=== PATIENT | male | born 1930 | race Caucasian/White ===

== ENCOUNTER → 2018-10-23 | Outpatient (CLI) | payer MEDICARE ==
[~2018-10-23] MED LIST: ASPIRIN81 M1 PO; BISOPROLOL-HCT1 EAC1; LEVOTHYROXINE50 MCG PO; LOSARTAN POTAS100 MG PO; PLAVIX75 MG PO; PRAVASTATIN SOD20 MG PO; RANITIDINE HCL150 M1 PO; SINGULAIR10 MG PO; ZETIA10 MG PO
--- NOTE | 2018-10-23 15:57 | Diagnostic Imaging Report ---
EXAMINATION: CT of the abdomen and pelvis without contrast. TECHNIQUE: Spiral CT images of the abdomen and pelvis were performed from the lung bases to the lesser trochanters. No intravenous contrast was given per renal stone protocol. Coronal and sagittal reformatted images were obtained. COMPARISON: None. CLINICAL HISTORY:Gross hematuria DISCUSSION: ABSENCE OF INTRAVENOUS CONTRAST DECREASES SENSITIVITY FOR DETECTION OF FOCAL LESIONS AND VASCULAR PATHOLOGY. ABDOMEN/PELVIS: LOWER THORAX: Calcified pleural plaques bilaterally. Calcified granuloma left lower lobe. Scattered groundglass opacities in the bilateral lower lobes HEPATOBILIARY:Nodular hepatic contour compatible with cirrhosis. No focal lesion or intrahepatic biliary ductal dilatation. The gallbladder has been removed. SPLEEN: Multiple calcified splenic granulomata. Spleen is at the upper limits of normal in size, measuring 12.5 cm craniocaudal. PANCREAS: No focal masses or ductal dilatation. ADRENALS: No adrenal nodules. KIDNEYS/URETERS: No hydronephrosis, stones, or solid mass lesions. PELVIC ORGANS/BLADDER: Within the dependent urinary bladder there is an ovoid-lentiform focus of increased attenuation measuring 5.2 cm transverse x 2.5 cm AP as seen on series 3 image 150. Coarse prostatic calcifications with otherwise normal prosthetic size. PERITONEUM/RETROPERITONEUM: No ascites. No pneumoperitoneum. LYMPH NODES: No pelvic sidewall, retroperitoneal, or mesenteric lymphadenopathy. VESSELS: Limited evaluation without intravenous contrast. There is a large, fusiform bilobed infrarenal abdominal aortic aneurysm, with a maximum diameter 5.3 cm transverse x 5.8 cm oblique AP. Surgical clips near the level of the renal arteries and at the aortic bifurcation may relate to prior operative repair. Diffuse atherosclerotic calcifications elsewhere throughout the abdominopelvic arterial systems. GI TRACT: There are innumerable sigmoid diverticula without gross wall thickening or adjacent inflammatory change. Diverticula of a lesser concentration are noted throughout the remainder of the colon. The appendix is normal. The stomach is collapsed with prominence of the rugal folds. There is no small bowel dilatation to suggest obstruction. BONES AND SOFT TISSUES: No osseous destructive lesions. Multilevel degenerative disc changes and degenerative facet arthropathy of the lumbar spine. IMPRESSION: 5.2 x 2.5 cm hyperdense focus in the dependent urinary bladder likely represents clot, though a mass lesion such as transitional cell carcinoma could have a similar appearance. Urology consultation for possible direct visualization by cystoscopy is suggested. No hydronephrosis or gross renal mass lesion within the limitation of a noncontrast examination. Bilobed fusiform infrarenal abdominal aortic aneurysm measuring 5.8 cm in maximum diameter. No adjacent stranding or retroperitoneal hematoma. Vascular surgery referral is suggested. Additional findings include bilateral calcified pleural plaques, likely related to prior asbestos or other inhalational exposure, cirrhotic liver morphology, and extensive large bowel diverticulosis without findings of diverticulitis. Findings were discussed by telephone with Dr. Flores at 3:45 PM 10/23/2018. Signed by: Dr. Vniay Aguirre M.D. on 10/23/2018 3:54 PM
== END ==
LOC: CT 14:51
PROVIDERS: ATTEND Family Medicine
DX: R31.0 Gross hematuria (principal)
CPT/HCPCS: 74176

== ENCOUNTER → 2018-11-06 | Outpatient (CLI) | payer MEDICARE ==
--- NOTE | 2018-11-06 10:23 | Diagnostic Imaging Report ---
EXAM: US ABDOMEN COMPLETE INDICATION: Abdominal aortic aneurysm. COMPARISON: CT abdomen/pelvis without contrast 10/23/2018. TECHNIQUE: Transverse and longitudinal sky scale and color doppler sonographic images of the abdomen were obtained. FINDINGS: LIVER 13.6 cm in the right midclavicular line. Normal echogenicity of the liver with normal contour, no masses. SPLEEN 12.7 cm in maximum diameter. Normal echogenicity, no masses. GALLBLADDER Status post cholecystectomy. BILE DUCTS No intra nor extra-hepatic biliary dilation. Common bile duct measures 0.4 cm PANCREAS: Not visualized due to overlying bowel gas. RIGHT KIDNEY: 10.8 cm Echogenicity: Normal Collecting System: No hydronephrosis Stones: None Cyst/Mass: None LEFT KIDNEY: 11.0 cm Echogenicity: Normal Collecting System: No hydronephrosis Stones: None Cyst/Mass: None VESSELS: Aorta: Not visualized due to overlying bowel gas. Inferior Vena Cava: Not visualized due to overlying bowel gas. Main Portal Vein: 0.8 cm, normal size with hepatopetal flow. FREE FLUID: None IMPRESSION: Limited examination, the abdominal aorta was not visualized due to overlying bowel gas. No acute sonographic abnormality. Signed by: Dr. Charlee Hair MD on 11/06/2018 10:19 AM
== END ==
LOC: US 08:06
PROVIDERS: ATTEND Family Medicine
DX: I71.4 Abdominal aortic aneurysm, without rupture (principal)
CPT/HCPCS: 76700

== ENCOUNTER → 2018-12-01 | Day surgery (SDC) | payer MEDICARE ==
[2018-11-29 14:16] LABS: BASOPHILS % 0.3 % (0.0-1.0); EOSINOPHILS # (AUTO) 0.2 (0.0-0.4); EOSINOPHILS % 3.2 % (0.0-6.0); HEMATOCRIT 40.6 % (38.2-49.6); LYMPHOCYTES # (AUTO) 1.2 (1.0-3.2); MEAN CORPUSCULAR HEMOGLOBIN 34.8 pg (28-32); MEAN CORPUSCULAR HGB CONC 34.5 g/dL (31-35); MONOCYTES # (AUTO) 0.7 (0.2-0.8); PLATELET COUNT 140 x10e3/uL (140-360); RED BLOOD COUNT 4.02 x10e6/uL (4.3-5.7); RED CELL DISTRIBUTION WIDTH 13.7 % (11.7-14.4)
--- NOTE | 2018-11-29 15:35 | Diagnostic Imaging Report ---
EXAM: CHEST 2 VIEWS, PA and lateral DATE: 11/29/2018 Time stamp on exam: 2:32 PM INDICATION: Preoperative COMPARISON: 10/06/2012 FINDINGS: LINES/TUBES: None LUNGS: No consolidations or edema. Left lower lobe calcified granuloma. Biapical pleural thickening which appears similar compared to prior study. PLEURA: No effusions or pneumothorax. HEART AND MEDIASTINUM: Normal size and contour. BONES AND SOFT TISSUES: No acute findings. Degenerative changes of the spine. IMPRESSION: No acute thoracic abnormality. Signed by: Dr. Azael Jones DO on 11/29/2018 3:32 PM
[~2018-12-01] MED LIST changes: +ACETAMINOPHEN/CODEINE 300MG - 30MG TAB ONE; +B&O 60MG R/S 60 MG SUPP PR ONE; +BUSPIRONE HCL10 MG PO; +CEFTRIAXONE SOD 1 GM/NS 50 ML 50 ML IV ONE; +DEXAMETHASONE SOD PHOS INJ 4 MG/ML VIAL ONE; +FENTANYL CITRATE/PF 100MCG/2 ML INJ ONE; +FUROSEMIDE40 MG PO; +GABAPENTIN300 MG PO; +IOPAMIDOL 610MG/1ML 300 MG/ML VIAL IV ONE; +KLOR-CON 1010 MEQ PO; +LIDOCAINE HCL 2% LOCAL INJ 5 ML SDV VIAL INJ ONE; +NITROGLYCERIN0.4 MG SL; +ONDANSETRON HCL INJ 2MG/ML 2ML 2 MG/ML VIAL ONE; +PROPOFOL IV EMULSION 10 MG/ML 20 ML VIAL ONE; +SEVOFLURANE INHAL SOLN 250 ML PEN BTL ONE
[2018-12-01 13:45] VITALS: BP 160/86
--- OUTSIDE RECORDS SUMMARY | 2018-12-04 14:05 | XMS REPORT ---
Author Author [facility] Address Unknown Phone Unavailable Care Team Providers Care Advertising Assistant Manager Name Role Phone ERIC ROSALES Unavailable Unavailable Ruben BARLOW Unavailable Unavailable Problems This patient has no known problems. Allergies, Adverse Reactions, Alerts This patient has no known allergies or adverse reactions. Medications This patient has no known medications. Results Test Description Test Time Test Comments Text Results Atomic Results Result Comments CHEST 2 VIEWS 2018-11-29 15:29:00 [place] [id number] Patient Name: ROBYN CAMPOVERDE MR #: [id number] : 1930 Age/Sex: 88/M Req #: [id number] Adm Physician: Ordered by: ERIC ROSALES MD Report #: [id number] Location: OR Room/Bed: Procedure: [id number] DX/CHEST 2 VIEWS Exam Date: 11/29/18 Exam Time: 1434 REPORT STATUS: Signed EXAM: CHEST 2 VIEWS, PA and lateral DATE: 11/29/2018 Time stamp on exam: 2:32 PM INDICATION: Preoperative COMPARISON: 10/06/2012 FINDINGS: LINES/TUBES: None LUNGS: No consolidations or edema. Left lower lobe calcified granuloma. Biapical pleural thickening which appears similar compared to prior study. PLEURA: No effusions or pneumothorax. HEART AND MEDIASTINUM: Normal size and contour. BONES AND SOFT TISSUES: No acute findings. Degenerative changes of the spine. IMPRESSION: No acute thoracic abnormality. Signed by: Dr. Rachel Jones DO on 11/29/2018 3:32 PM Dictated By: RACHEL JONES DO 31 Transcribed By: YARELIS on 11/29/181531 COPY TO: ERIC ROSALES MD US ABDOMEN COMPLETE 2018-11-06 10:16:00 [place] [id number] Patient Name: ROBYN CAMPOVERDE MR #: [id number] : 1930 Age/Sex: 88/M Req #: [id number] Adm Physician: Ordered by: JERRICA BARLOW MD Report #: [id number] Location: US Room/Bed: Procedure: [id number] US/US ABDOMEN COMPLETE Exam Date: 11/06/18 Exam Time: 0853 REPORT STATUS: Signed EXAM: US ABDOMEN COMPLETE INDICATION: Abdominal aortic aneurysm. COMPARISON: CT abdomen/pelvis without contrast 10/23/2018. TECHNIQUE: Transverse and longitudinal sky scale and color doppler sonographic images of the abdomen were obtained. FINDINGS: LIVER 13.6 cm in the right midclavicular line. Normal echogenicity of the liver with normal contour, no masses. SPLEEN 12.7 cm in maximum diameter. Normal echogenicity, no masses. GALLBLADDER Status post cholecystectomy. BILE DUCTS No intra nor extra-hepatic biliary dilation. Common bile duct measures 0.4 cm PANCREAS: Not visualized due to overlying bowel gas. RIGHT KIDNEY: 10.8 cm Echogenicity: Normal Collecting System: No hydronephrosis Stones: None Cyst/Mass: None LEFT KIDNEY: 11.0 cm Echogenicity: Normal Collecting System: No hydronephrosis Stones: None Cyst/Mass: None VESSELS: Aorta: Not visualized due to overlying bowel gas. Inferior Vena Cava: Not visualized due to overlying bowel gas. Main Portal Vein: 0.8 cm, normal size with hepatopetal flow. FREE FLUID: None IMPRESSION: Limited examination, the abdominal aorta was not visualized due to overlying bowel gas. No acute sonographic abnormality. Signed by: Dr. Tabby De Guzman MD on 11/06/2018 10:19 AM Dictated By: TABBY DE GUZMAN MD 1019 Transcribed By: YARELIS on 11/06/18 1019 COPY TO: JERRICA BARLOW MD CT ABDOMEN/PELVIS WO 2018-10-23 15:29:00 [place] [address] Patient Name: ROBYN CAMPOVERDE MR #: [id number] : 1930 Age/Sex: 88/M Req #: [id number] Adm Physician: Ordered by: JERRICA BARLOW MD Report #: [id number] Location: CT Room/Bed: Procedure: [id number] CT/CT ABDOMEN/PELVIS WO Exam Date: 10/23/18 Exam Time: 1520 REPORT STATUS: Signed EXAMINATION: CT of the abdomen and pelvis without cont rast. TECHNIQUE: Spiral CT images of the abdomen and pelvis were performed from the lung bases to the lesser trochanters. No intravenous contrast was given per renal stone protocol. Coronal and sagittal reformatted images were obtained. COMPARISON: None. CLINICAL HISTORY:Gross hematuria DISCUSSION: ABSENCE OF INTRAVENOUS CONTRAST DECREASES SENSITIVITY FOR DETECTION OF FOCAL LESIONS AND VASCULAR PATHOLOGY. ABDOMEN/PELVIS: LOWER THORAX: Calcified pleural plaques bilaterally. Calcified granuloma left lower lobe. Scattered groundglass opacities in the bilateral lower lobes HEPATOBILIARY:Nodular hepatic contour compatible with cirrhosis. No focal lesion or intrahepatic biliary ductal dilatation. The gallbladder has been removed. SPLEEN: Multiple calcified splenic granulomata. Spleen is at the upper limits of normal in size, measuring 12.5 cm craniocaudal. PANCREAS: No focal masses or ductal dilatation. ADRENALS: No adrenal nodules. KIDNEYS/URETERS: No hydronephrosis, stones, or solid mass lesions. PELVIC ORGANS/BLADDER: Within the dependent urinary bladder there is an ovoid- lentiform focus of increased attenuation measuring 5.2 cm transverse x 2.5 cm AP as seen on series 3 image 150. Coarse prostatic calcifications with otherwise normal prosthetic size. PERITONEUM/RETROPERITONEUM: No ascites. No pneumoperitoneum. LYMPH NODES: No pelvic sidewall, retroperitoneal, or mesenteric lymphadenopathy. VESSELS: Limited evaluation without intravenous contrast. There is a large, fusiform bilobed infrarenal abdominal aortic aneurysm, with a maximum diameter 5.3 cm transverse x 5.8 cm oblique AP. Surgical clips near the level of the renal arteries and at the aortic bifurcation may relate to prior operative repair. Diffuse atherosclerotic calcifications elsewhere throughout the abdominopelvic arterial systems. GI TRACT: There are innumerable sigmoid diverticula without gross wall thicke richy or adjacent inflammatory change. Diverticula of a lesser concentration are noted throughout the remainder of the colon. The appendix is normal. The stomach is collapsed with prominence of the rugal folds. There is no small bowel dilatation to suggest obstruction. BONES AND SOFT TISSUES: No osseous destructive lesions. Multilevel degenerative disc changes and degenerative facet arthropathy of the lumbar spine. IMPRESSION: 5.2 x 2.5 cm hyperdense focus in the dependent urinary bladder likely represents clot, though a mass lesion such as transitional cell carcinoma could have a similar appearance. Urology consultation for possible direct visualization by cystoscopy is suggested. No hydronephrosis or gross renal mass lesion within the limitation of a noncontrast examination. Bilobed fusiform infrarenal abdominal aortic aneurysm measuring 5.8 cm in maximum diameter. No adjacent stranding or retroperitoneal hematoma. Vascular surgery referral is suggested. Additional findings include bilateral calcified pleural plaques, likely related to prior asbestos or other inhalational exposure, cirrhotic liver morphology, and extensive large bowel diverticulosis without findings of diverticulitis. Findings were discussed by telephone with Dr. Barlow at 3:45 PM 10/23/2018. Signed by: Dr. Thierno Harman M.D. on 10/23/2018 3:54 PM Dictated By: THIERNO HARMAN MD 1554 Transcribed By: YARELIS on 10/23/18 1556 COPY TO: JERRICA BARLOW MD
--- NOTE | 2019-01-18 05:10 | Operative Report ---
DATE OF PROCEDURE: 12/01/2018 SURGEON: Mike Alvarez MD PREOPERATIVE DIAGNOSES: 1. Gross hematuria. 2. Urinary tract infections. POSTOPERATIVE DIAGNOSES: 1. Gross hematuria. 2. Urinary tract infections. 3. Bladder cancer. OPERATIONS PERFORMED: 1. Cystourethroscopy with bilateral ureteral catheterization and retrograde ureteropyelography (separate procedure performed for the hematuria and urinary tract infections). 2. Interpretation of retrograde ureteropyelography. 3. Supervision of fluoroscopy, no radiologist present. 4. Cystourethroscopy with transurethral resection and treatment of bladder tumors larger than combined total of 5 cm in diameter (separate procedure performed for the bladder cancer). 5. Cystourethroscopy with insertion of left indwelling ureteral stent (separate procedure performed in order to allow the left kidney to drain in light of the fact that we treated bladder cancer that was in the vicinity of the left ureteral orifice). 6. Interpretation of retrograde ureteropyelography. 7. Supervision of fluoroscopy, no radiologist present. ANESTHESIA: General. COMPLICATIONS: None. CLINICAL SUMMARY: Devonte Gleason is an 88-year-old man with hematuria and urinary tract infections. He was brought for the above procedures. He is aware of the risks of bleeding, infection, injury to adjacent structures, need for additional procedures and elected to proceed. OPERATIVE PROCEDURE IN DETAIL: Informed consent was verified. Devonte Gleason was properly identified and taken to the operating room and placed on the cystoscopy table in supine position. Anesthesia was uneventfully begun. The patient was then carefully and gently repositioned in the dorsal lithotomy position with all pressure points well padded. His genitalia were prepared and draped in usual sterile fashion. The cystoscope sheath with the visual obturator was in place was atraumatically inserted in the patient's urethra, guided unremarkably urethra distally to the proximal urethra, we identified some mild false channels. There was no significant stricture. The sphincteric region was normal. 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 We entered the patient's bladder. Multiple bladder tumors were identified. These multiple bladder tumors totalled well over a 5 cm diameter. Diverticula were noted as well as heavy trabeculations. Normally positioned and configured ureteral orifices were identified. An 8-Turkish catheter was used to cannulate each ureter and retrograde pyelograms were performed. Interpretation of retrograde ureteropyelography contrast was instilled in retrograde fashion bilaterally. There were no tumors, no stones, and no diverticula. Unobstructed drainage was observed bilaterally fluoroscopically. There was tortuosity of both ureters. The tumor was within rather significant proximity and involved and circumscribed the left ureteral orifice as this is obvious that any treatment is going to potentially impinge drainage of the left kidney. Therefore, cystoscopic and fluoroscopic guidance a left-sided indwelling ureteral stent was then placed, it was coiled in the patient's kidney as well as the patient's bladder. The retaining suture was cut short. We then proceeded with performing transurethral resection of these bladder tumors. We biopsied the tumors and then treated and vaporized the all visible tumor following obtaining of specimen. Perfect hemostasis was achieved with electrocautery. No residual tumors remained. The cystoscope was withdrawn. The patient's bladder was drained. Belladonna and opium suppository were placed revealing a 30 g prostate that is smooth, non-fluctuant without any nodules. The patient was then uneventfully reversed from anesthesia and taken to recovery room in stable condition. Explicit postop instructions were given. We will plan on returning to the office in about two weeks to remove the patient's Schuler and determine followup care based on his pathology. Mike Alvarez MD [place]/PURA /[id number] cc: Benson Kaur MD
== END | disposition home or self-care (01) ==
LOC: OR 11:07
PROVIDERS: ATTEND Urology
DX: C67.9 Malignant neoplasm of bladder, unspecified (principal); N39.0 Urinary tract infection, site not specified; N32.89 Other specified disorders of bladder; N40.0 Benign prostatic hyperplasia without lower urinary tract symptoms; N13.8 Other obstructive and reflux uropathy; I10 Essential (primary) hypertension; B02.9 Zoster without complications; I25.10 Atherosclerotic heart disease of native coronary artery without angina pectoris; K21.9 Gastro-esophageal reflux disease without esophagitis; J44.9 Chronic obstructive pulmonary disease, unspecified; M19.90 Unspecified osteoarthritis, unspecified site; I49.1 Atrial premature depolarization; E03.9 Hypothyroidism, unspecified; K44.9 Diaphragmatic hernia without obstruction or gangrene; H91.90 Unspecified hearing loss, unspecified ear; F32.9 Major depressive disorder, single episode, unspecified; E78.5 Hyperlipidemia, unspecified; Z79.82 Long term (current) use of aspirin; Z79.02 Long term (current) use of antithrombotics/antiplatelets; Z87.891 Personal history of nicotine dependence
CPT/HCPCS: 36415; 52240; 52332; 71046; 74420; 85025; 88305; 93005; C1758; C1874; J0696; J1100; J2001; J2405; J2704; Q9967; 88304; J3010

== ENCOUNTER → 2019-01-24 | Day surgery (SDC) | payer MEDICARE ==
--- NOTE | 2019-01-22 15:41 | Diagnostic Imaging Report ---
EXAMINATION: CHEST 2 VIEWS INDICATION: Pre-operative COMPARISON: Chest radiograph 11/29/2018 FINDINGS: LINES/TUBES:None LUNGS:The lungs are well-inflated. Mild biapical pleural parenchymal thickening/scarring. No focal consolidation or pulmonary edema. Left lower lobe calcified granuloma. PLEURA:No pleural effusion or pneumothorax. MEDIASTINUM:The cardiomediastinal silhouette appears normal in size and shape. Atherosclerotic calcifications of the thoracic aorta. BONES/SOFT TISSUES:No acute osseous injury. Degenerative changes of the visualized spine. ABDOMEN:No free air under the diaphragm. IMPRESSION: No focal pneumonia or pulmonary edema. Signed by: David Pittman MD on 01/22/2019 3:38 PM
[2019-01-22 16:50] LABS: BASOPHILS % 0.4 % (0.0-1.0); EOSINOPHILS # (AUTO) 0.2 (0.0-0.4); EOSINOPHILS % 2.2 % (0.0-6.0); HEMATOCRIT 40.4 % (38.2-49.6); HEMOGLOBIN 13.7 g/dL (14.0-18.0); LYMPHOCYTES # (AUTO) 1.4 (1.0-3.2); LYMPHOCYTES % 18.7 % (18.0-39.1); MEAN CORPUSCULAR HEMOGLOBIN 34.3 pg (28-32); MEAN CORPUSCULAR HGB CONC 33.9 g/dL (31-35); MONOCYTES # (AUTO) 1.1 (0.2-0.8); MONOCYTES % 14.1 % (4.4-11.3); NEUTROPHILS % 64.2 % (38.7-80.0); PLATELET COUNT 177 x10e3/uL (140-360); RED CELL DISTRIBUTION WIDTH 12.8 % (11.7-14.4)
[2019-01-22 17:08] LABS: ANION GAP 16.9 mmol/L (8-16); CALCIUM 9.2 mg/dL (8.4-10.2); CREATININE, SERUM 1.31 mg/dL (0.72-1.25); POTASSIUM 3.9 mmol/L (3.5-5.1)
[~2019-01-24] MED LIST changes: -ACETAMINOPHEN/CODEINE 300MG - 30MG TAB ONE
[2019-01-24 14:25] VITALS: BP 149/78
--- NOTE | 2019-03-16 05:44 | Operative Report ---
DATE OF PROCEDURE: 01/24/2019 SURGEON: Mike Alvarez MD PREOPERATIVE DIAGNOSES: 1. Bladder cancer. 2. Foreign body (indwelling ureteral stent). 3. Gross hematuria. POSTOPERATIVE DIAGNOSES: 1. Bladder cancer. 2. Foreign body (indwelling ureteral stent). 3. Gross hematuria. 4. Distal urethral stricture disease. OPERATION PERFORMED: 1. Cystourethroscopy with calibration and dilation of stricture (separate procedure performed for the diagnosis of stricture). 2. Cystourethroscopy with bladder biopsies (separate procedure performed for prior bladder cancer). 3. Cystourethroscopy with complicated removal of left indwelling ureteral stent (separate procedure performed for the diagnosis of stent). 4. Cystourethroscopy with bilateral ureteral catheterization and retrograde ureteropyelography (separate procedure performed for the hematuria). 5. Interpretation of retrograde ureteropyelography. 6. Supervision of fluoroscopy, no radiologist present. ANESTHESIA: General. COMPLICATIONS: None. CLINICAL SUMMARY: Devonte Gleason is an 88-year-old man with bladder cancer. He has an indwelling ureteral stent. He is brought for stent removal and evaluation of his lower urinary tract. He is aware of the risks of bleeding, infection, injury to adjacent structures, need for additional procedures, and elected to proceed. OPERATIVE PROCEDURE IN DETAIL: Informed consent was verified. Devonte Gleason was properly identified, taken to the operating room, placed on the cystoscopy table in supine position. Anesthesia was uneventfully begun. The patient was then carefully and gently repositioned in the dorsal lithotomy position with all pressure points well padded. His genitalia were prepared and draped in usual sterile fashion. The cystoscope sheath with the visual obturator in place were inserted in the patient's urethral meatus, but it could not be advanced pass the fossa navicularis. The fossa navicularis was very tight. It was popped with a 14-Tajik sound and dilated progressively to 24-Tajik and utilizing sounds, we then introduced the cystoscope sheath into the patient's urethra, guided down the otherwise unremarkable urethra, went through the sphincteric region through the prostate bed, which was significant for being relatively open, status post what appears to be prior resection, went to the patient's bladder. Panendoscopy revealed a normal right ureteral orifice. The left ureteral orifice had a stent emerging from it and there were various nonpapillary growths around this left ureteral orifice region, along the posterior wall, and along the left lateral lobe. This may be scar, status post transurethral resection of bladder tumour or may be residual tumor. Biopsies were taken of this region that contained the abnormal mucosa and then the Bugbee electrode was utilized to fulgurate the base of the region of the areas where we biopsied as well as any other abnormal mucosa. Once this was completed, we grasped the patient's stent and removed it. A ureteral catheter was used to cannulate each ureter and retrograde ureteropyelograms were performed. Interpretation of retrograde ureteropyelography contrast was instilled in retrograde fashion bilaterally. There were no tumors, no stones, and no diverticula. Unobstructed drainage was observed bilaterally fluoroscopically. The left ureteral orifice was somewhat laterally displaced. There was some dilation of the left ureter. did not pass the point of the intramural ureter. The patient's bladder was drained. A belladonna and opium suppository were placed. The patient was uneventfully reversed from anesthesia and taken to recovery room in stable condition. Explicit postoperative instructions were given. We will plan to follow the patient up in the office. At followup, we will not only follow up on the patient's bladder cancer history, we will also manage the patient's lower tract symptomatology and his voiding. Uroflowmetry and bladder sonography will be performed in near future. Mike Alvarez MD [place]/MODL /[id number] cc: Farhat Flores MD
== END | disposition home or self-care (01) ==
LOC: OR 10:25
PROVIDERS: ATTEND Urology
DX: C67.9 Malignant neoplasm of bladder, unspecified (principal); N35.919 Unspecified urethral stricture, male, unspecified site; N39.0 Urinary tract infection, site not specified; K85.90 Acute pancreatitis without necrosis or infection, unspecified; J44.9 Chronic obstructive pulmonary disease, unspecified; I11.0 Hypertensive heart disease with heart failure; I50.9 Heart failure, unspecified; M19.90 Unspecified osteoarthritis, unspecified site; M54.9 Dorsalgia, unspecified; E03.9 Hypothyroidism, unspecified; K21.9 Gastro-esophageal reflux disease without esophagitis; K44.9 Diaphragmatic hernia without obstruction or gangrene; F95.9 Tic disorder, unspecified; B02.9 Zoster without complications; F32.9 Major depressive disorder, single episode, unspecified; F41.9 Anxiety disorder, unspecified; Z01.810 Encounter for preprocedural cardiovascular examination; Z01.812 Encounter for preprocedural laboratory examination; Z01.818 Encounter for other preprocedural examination; Z79.02 Long term (current) use of antithrombotics/antiplatelets; Z95.5 Presence of coronary angioplasty implant and graft; Z87.891 Personal history of nicotine dependence
CPT/HCPCS: 36415; 52005; 52214; 71046; 74420; 80048; 85025; 88305; 93005; C1758; J0696; J1100; J2001; J2405; J2704; J3010; Q9967

== ENCOUNTER 2020-08-13 07:49 | Inpatient (IN) | payer MEDICARE ==
[2020-08-11 11:42] LABS: BASOPHILS % 0.4 % (0.0-1.0); EOSINOPHILS # (AUTO) 0.3 (0.0-0.4); EOSINOPHILS % 6.1 % (0.0-6.0); HEMATOCRIT 37.1 % (38.2-49.6); HEMOGLOBIN 12.3 g/dL (14.0-18.0); LYMPHOCYTES # (AUTO) 1.2 (1.0-3.2); MEAN CORPUSCULAR HEMOGLOBIN 33.6 pg (28-32); MEAN CORPUSCULAR HGB CONC 33.2 g/dL (31-35); MEAN CORPUSCULAR VOLUME 101.4 fL (81-99); MONOCYTES # (AUTO) 0.7 (0.2-0.8); MONOCYTES % 13.9 % (4.4-11.3); NEUTROPHILS % 56.4 % (38.7-80.0); PLATELET COUNT 96 x10e3/uL (140-360); RED BLOOD COUNT 3.66 x10e6/uL (4.3-5.7); RED CELL DISTRIBUTION WIDTH 13.7 % (11.7-14.4)
[2020-08-11 12:01] LABS: ANION GAP 9.9 mmol/L (8-16); CALCIUM 8.4 mg/dL (8.4-10.2); CREATININE, SERUM 1.29 mg/dL (0.72-1.25); POTASSIUM 3.9 mmol/L (3.5-5.1)
[~2020-08-13] VITALS: Ht 177.8 cm; Wt 91.6 kg
[~2020-08-13 07:49] MED LIST changes: -B&O 60MG R/S 60 MG SUPP PR ONE; -CEFTRIAXONE SOD 1 GM/NS 50 ML 50 ML IV ONE; -DEXAMETHASONE SOD PHOS INJ 4 MG/ML VIAL ONE; -FENTANYL CITRATE/PF 100MCG/2 ML INJ ONE; +FLOMAX0.4 MG PO; -IOPAMIDOL 610MG/1ML 300 MG/ML VIAL IV ONE; +KEFLEX125 MG/5 M PO; -LIDOCAINE HCL 2% LOCAL INJ 5 ML SDV VIAL INJ ONE; +MONTELUKAST SOD10 MG PO; -ONDANSETRON HCL INJ 2MG/ML 2ML 2 MG/ML VIAL ONE; -PROPOFOL IV EMULSION 10 MG/ML 20 ML VIAL ONE; -SEVOFLURANE INHAL SOLN 250 ML PEN BTL ONE
[2020-08-13] MEDS ORDERED: IOPAMIDOL 300MG/ML 50ML INFUS..BTL IV ONE (08:11)
[2020-08-13] MEDS ORDERED: B&O 60MG R/S 60 MG SUPP PR ONE (08:11)
[2020-08-13] MEDS ORDERED: SODIUM CHLORIDE 0.9% 1000ML 1,000 ML ONE (08:38)
[2020-08-13] MEDS ORDERED: CEFTRIAXONE SOD 1 GM VIAL ONE (08:38)
[2020-08-13] MEDS ORDERED: GENTAMICIN 80MG/NS 100 ML 200 ML IV ONE (08:38)
[2020-08-13] MEDS ORDERED: SODIUM CHLORIDE 0.9% 50ML 50 ML ONE (08:38)
[2020-08-13] MEDS ORDERED: DIPHENHYDRAMINE HCL 25 MG CAP PO PRN (11:30)
[2020-08-13] MEDS ORDERED: B&O 60MG R/S 60 MG SUPP PR PRN (11:30)
[2020-08-13] MEDS ORDERED: ONDANSETRON HCL INJ 2MG/ML 2ML 2 MG/ML VIAL IV PRN (11:30)
[2020-08-13] MEDS ORDERED: PHENAZOPYRIDINE HCL 100 MG TAB PO PRN (11:30)
[2020-08-13] MEDS ORDERED: PROPOFOL IV EMULSION 10 MG/ML 20 ML VIAL ONE (12:57)
[2020-08-13] MEDS ORDERED: DEXAMETHASONE SOD PHOS INJ 4 MG/ML VIAL ONE (12:57)
[2020-08-13] MEDS ORDERED: ONDANSETRON HCL INJ 2MG/ML 2ML 2 MG/ML VIAL ONE (12:57)
[2020-08-13] MEDS ORDERED: SEVOFLURANE INHAL SOLN 250 ML PEN BTL ONE (12:57)
[2020-08-13] MEDS ORDERED: LIDOCAINE HCL 2% LOCAL INJ 5 ML SDV VIAL INJ ONE (12:57)
[2020-08-13 13:28] VITALS: BP 154/70
[2020-08-13] MEDS ORDERED: FENTANYL CITRATE/PF 100MCG/2 ML INJ ONE (13:32)
[2020-08-13 13:45] VITALS: BP 154/70
[2020-08-13] MEDS ORDERED: DOCUSATE SODIUM 100 MG CAP PO PRN (14:00)
[2020-08-13] MEDS ORDERED: ACETAMINOPHEN 325 MG TAB PO PRN (14:00)
[2020-08-13] MEDS: SODIUM CHLORIDE 0.9% 1000ML 1,000 ML IV SCH (15:01)
[2020-08-13 15:04] LABS: BASOPHILS % 0.2 % (0.0-1.0); EOSINOPHILS % 0.3 % (0.0-6.0); HEMOGLOBIN 13.4 g/dL (14.0-18.0); LYMPHOCYTES # (AUTO) 0.7 (1.0-3.2); LYMPHOCYTES % 11.5 % (18.0-39.1); MEAN CORPUSCULAR HEMOGLOBIN 34.5 pg (28-32); MEAN CORPUSCULAR HGB CONC 33.5 g/dL (31-35); MEAN CORPUSCULAR VOLUME 103.1 fL (81-99); MONOCYTES # (AUTO) 0.2 (0.2-0.8); MONOCYTES % 2.7 % (4.4-11.3); NEUTROPHILS # (AUTO) 5.3 (2.1-6.9); NEUTROPHILS % 84.8 % (38.7-80.0); PLATELET COUNT 87 x10e3/uL (140-360); RED BLOOD COUNT 3.88 x10e6/uL (4.3-5.7); RED CELL DISTRIBUTION WIDTH 13.8 % (11.7-14.4)
[2020-08-13 15:27] LABS: ANION GAP 12.8 mmol/L (8-16); CALCIUM 8.2 mg/dL (8.4-10.2); CREATININE, SERUM 1.21 mg/dL (0.72-1.25); POTASSIUM 4.8 mmol/L (3.5-5.1)
[2020-08-13 16:30] VITALS: BP 183/72
[2020-08-13] MEDS: DOCUSATE SODIUM 100 MG CAP PO SCH (17:08)
[2020-08-13] MEDS: BUSPIRONE HCL 10 MG TABLET PO SCH (17:08)
[2020-08-13] MEDS ORDERED: ALBUTEROL/IPRATROPIUM 3 ML NEB NEB PRN (17:45)
[2020-08-13 20:00] VITALS: BP 137/57
[2020-08-13 20:04] VITALS: BP 183/72
[2020-08-13 20:45] VITALS: BP 137/57
[2020-08-13] MEDS ORDERED: ZOLPIDEM TARTRATE 5 MG TAB PO PRN (21:00)
[2020-08-14] VITALS (8 sets, daily range): BP systolic 106–152; BP diastolic 47–68
[2020-08-14] MEDS: SODIUM CHLORIDE 0.9% 1000ML 1,000 ML IV SCH ×2 (02:20→15:07)
[2020-08-14 05:05] LABS: BASOPHILS % 0.1 % (0.0-1.0); HEMATOCRIT 33.9 % (38.2-49.6); HEMOGLOBIN 11.4 g/dL (14.0-18.0); LYMPHOCYTES # (AUTO) 0.6 (1.0-3.2); LYMPHOCYTES % 6.9 % (18.0-39.1); MEAN CORPUSCULAR HEMOGLOBIN 33.6 pg (28-32); MEAN CORPUSCULAR HGB CONC 33.6 g/dL (31-35); MONOCYTES # (AUTO) 0.6 (0.2-0.8); MONOCYTES % 6.7 % (4.4-11.3); NEUTROPHILS # (AUTO) 7.8 (2.1-6.9); NEUTROPHILS % 85.7 % (38.7-80.0); PLATELET COUNT 77 x10e3/uL (140-360); RED BLOOD COUNT 3.39 x10e6/uL (4.3-5.7); RED CELL DISTRIBUTION WIDTH 13.2 % (11.7-14.4)
[2020-08-14 05:27] LABS: ANION GAP 9.9 mmol/L (8-16); CALCIUM 7.5 mg/dL (8.4-10.2); CREATININE, SERUM 1.2 mg/dL (0.72-1.25); POTASSIUM 4.9 mmol/L (3.5-5.1)
[2020-08-14] MEDS: LEVOTHYROXINE SODIUM 50 MCG TAB PO SCH (05:37)
[2020-08-14] MEDS: CEFTRIAXONE SOD 1 GM in SODIUM CHLORIDE 0.9% 50ML 50 ML IV SCH (08:49)
[2020-08-14] MEDS: MONTELUKAST SODIUM 10 MG TAB PO SCH (08:49)
[2020-08-14] MEDS: TAMSULOSIN HCL 0.4 MG CAP PO SCH (08:49)
[2020-08-14] MEDS: DOCUSATE SODIUM 100 MG CAP PO SCH ×2 (08:49→16:28)
[2020-08-14] MEDS: BUSPIRONE HCL 10 MG TABLET PO SCH ×2 (08:49→16:28)
[2020-08-15] VITALS: BP 119/60
[2020-08-15] MEDS: SODIUM CHLORIDE 0.9% 1000ML 1,000 ML IV SCH (03:43)
[2020-08-15 04:00] VITALS: BP 113/48
[2020-08-15] MEDS: LEVOTHYROXINE SODIUM 50 MCG TAB PO SCH (05:14)
[2020-08-15 05:56] LABS: BASOPHILS % 0.3 % (0.0-1.0); EOSINOPHILS # (AUTO) 0.1 (0.0-0.4); EOSINOPHILS % 1.2 % (0.0-6.0); HEMATOCRIT 32.3 % (38.2-49.6); HEMOGLOBIN 10.9 g/dL (14.0-18.0); LYMPHOCYTES # (AUTO) 1.4 (1.0-3.2); LYMPHOCYTES % 15.7 % (18.0-39.1); MEAN CORPUSCULAR HGB CONC 33.7 g/dL (31-35); MEAN CORPUSCULAR VOLUME 100.6 fL (81-99); MONOCYTES # (AUTO) 0.9 (0.2-0.8); MONOCYTES % 9.9 % (4.4-11.3); NEUTROPHILS # (AUTO) 6.3 (2.1-6.9); NEUTROPHILS % 72.3 % (38.7-80.0); PLATELET COUNT 88 x10e3/uL (140-360); RED BLOOD COUNT 3.21 x10e6/uL (4.3-5.7); RED CELL DISTRIBUTION WIDTH 13.5 % (11.7-14.4)
[2020-08-15 06:20] LABS: ANION GAP 10.4 mmol/L (8-16); CALCIUM 7.6 mg/dL (8.4-10.2); CREATININE, SERUM 1.21 mg/dL (0.72-1.25); POTASSIUM 4.4 mmol/L (3.5-5.1)
[2020-08-15 08:08] VITALS: BP 140/55
[2020-08-15] MEDS: MONTELUKAST SODIUM 10 MG TAB PO SCH (10:00)
[2020-08-15] MEDS: BUSPIRONE HCL 10 MG TABLET PO SCH (10:00)
[2020-08-15] MEDS: TAMSULOSIN HCL 0.4 MG CAP PO SCH (10:00)
[2020-08-15] MEDS: DOCUSATE SODIUM 100 MG CAP PO SCH (10:00)
[2020-08-15] MEDS: CEFTRIAXONE SOD 1 GM in SODIUM CHLORIDE 0.9% 50ML 50 ML IV SCH (10:00)
[2020-08-15 10:17] VITALS: BP 140/55
[2020-08-15 12:21] VITALS: BP 135/56
== END 2020-08-15 15:20 | disposition home or self-care (01) | DRG 666 ==
LOC: OR 07:49 → PACU V 11:22 → MED/SURG 12:52
PROVIDERS: ADMIT Internal Medicine; ATTEND Internal Medicine
PROC: 0T7D8ZZ Dilation of Urethra, Via Natural or Artificial Opening Endoscopic (ICD-10-PCS; 2020-08-13)
PROC: BT141ZZ Fluoroscopy of Kidneys, Ureters and Bladder using Low Osmolar Contrast (ICD-10-PCS; 2020-08-13)
PROC: 0T788ZZ Dilation of Bilateral Ureters, Via Natural or Artificial Opening Endoscopic (ICD-10-PCS; 2020-08-13)
PROC: 0TBB8ZX Excision of Bladder, Via Natural or Artificial Opening Endoscopic, Diagnostic (ICD-10-PCS; principal; 2020-08-13 10:00)
PROC: 0VT08ZZ Resection of Prostate, Via Natural or Artificial Opening Endoscopic (ICD-10-PCS; 2020-08-13 10:00)
DX: C67.9 Malignant neoplasm of bladder, unspecified (principal); N13.8 Other obstructive and reflux uropathy; N39.0 Urinary tract infection, site not specified; N40.1 Benign prostatic hyperplasia with lower urinary tract symptoms; Z20.822 Contact with and (suspected) exposure to COVID-19; N35.919 Unspecified urethral stricture, male, unspecified site; J44.9 Chronic obstructive pulmonary disease, unspecified; I25.10 Atherosclerotic heart disease of native coronary artery without angina pectoris; E03.9 Hypothyroidism, unspecified; N40.0 Benign prostatic hyperplasia without lower urinary tract symptoms
CPT/HCPCS: 36415; 71046; 74420; 80048; 83735; 85025; 88305; 99251; C1758; J0696; J1100; J1580; J2001; J2405; J3010; J7030; U0002